=== PATIENT | male | born 1995 ===

== ENCOUNTER 2019-03-25 01:24 | Emergency (ER) | payer SELFPAY | END 2019-03-25 02:16 | disposition home or self-care (01) | PROVIDERS: Emergency Provider Nurse Practitioner Family; Visit Provider Nurse Practitioner Family | DX: J20.9 Acute bronchitis, unspecified (principal); J00 Acute nasopharyngitis [common cold] | CPT/HCPCS: 71045; 94640; 96372; 99284; J1100 ==